=== PATIENT | female | born 1970 | race Caucasian/White ===

== ENCOUNTER 2025-01-09 04:23 | Emergency (ER) | payer BC ==
[2025-01-09 04:35] VITALS: BP 129/79; PULSE 95; RESP 16; TEMP 98.8; BMI 22.6
[2025-01-09] MEDS ORDERED: ONDANSETRON *ODT* 4 MG TABLET ONE (05:16)
[2025-01-09] MEDS ORDERED: FAMOTIDINE 10 MG TABLET ONE (05:16)
[2025-01-09] MEDS ORDERED: MAG HYDROX/AL HYDROX/SIMETH 30 ML UNIT-DOSE CUP ONE (05:17)
[2025-01-09] MEDS ORDERED: ACETAMINOPHEN 325 MG TABLET (FP) ONE (05:17)
[2025-01-09] MEDS: FAMOTIDINE 10 MG TABLET PO ONE (05:31)
[2025-01-09] MEDS: ACETAMINOPHEN 500 MG TABLET (FP) PO ONE (05:31)
[2025-01-09] MEDS: MAG HYDROX/AL HYDROX/SIMETH 30 ML UNIT-DOSE CUP PO ONE (05:32)
[2025-01-09] MEDS: ONDANSETRON *ODT* 4 MG TABLET SL ONE (05:32)
== END 2025-01-09 06:31 | disposition home or self-care (01) ==
LOC: JER 04:23
DX: R11.2 Nausea with vomiting, unspecified (principal); M79.10 Myalgia, unspecified site; R53.81 Other malaise; R51.9 Headache, unspecified; R50.9 Fever, unspecified
CPT/HCPCS: 87637-QW; 99283-25; Q0162